=== PATIENT | female | born 1970 | race Caucasian/White ===

== ENCOUNTER 2017-05-22 13:48 | Emergency (ER) | payer OTHER ==
[~2017-05-22] VITALS: Ht 165.1 cm; Wt 63.0 kg
[2017-05-22 13:50] VITALS: BP 155/91
[2017-05-22] MEDS ORDERED: ASPIRIN 81 MG TABLET CHEW PO ONE (14:30)
[2017-05-22 14:32] LABS: BASOPHILS # (AUTO) 0.04 x10^3/uL (0-0.1); BASOPHILS % (AUTO) 1 % (0-1); EOSINOPHILS # (AUTO) 0.17 x10^3/uL (0-0.4); EOSINOPHILS % (AUTO) 3 % (1-7); LYMPHOCYTES # (AUTO) 1.57 x10^3/uL (1-3.4); LYMPHOCYTES % (AUTO) 23 % (22-44); MD NO; MEAN CORPUSCULAR HEMOGLOBIN 30.2 pg (27.0-34.8); MEAN CORPUSCULAR HGB CONC 33.7 g/dL (32.4-35.8); MEAN CORPUSCULAR VOLUME 89.4 fL (80-100); MEAN PLATELET VOLUME 8.2 fL (7.4-10.4); MONOCYTES # (AUTO) 0.43 x10^3/uL (0.2-0.8); MONOCYTES % (AUTO) 6 % (2-9); NEUTROPHILS # (AUTO) 4.55 x10^3/uL (1.8-6.8); NEUTROPHILS % (AUTO) 67 % (42-75); PLATELET COUNT 216 x10^3/uL (130-400); RED CELL DISTRIBUTION WIDTH 13.5 % (9.6-15.2)
[2017-05-22] MEDS ORDERED: ESTR1TAB15 PO (14:41)
[2017-05-22 14:44] LABS: ALBUMIN 3.5 g/dL (3.4-5.0); ANION GAP 10 mmol/L (5-15); CALCIUM 9.1 mg/dL (8.5-10.1); CHLORIDE 107 mmol/L (98-107); CREATININE 0.64 mg/dL (0.55-1.02)
[2017-05-22 14:48] LABS: TROPONIN I < 0.015 ng/mL (0.000-0.045)
[2017-05-22] MEDS ORDERED: KETOROLAC 30 MG/1 ML IVPush ONE (15:00)
[2017-05-22] MEDS ORDERED: ASPIRIN 81 MG TABLET CHEW ONE (15:05)
[2017-05-22] MEDS ORDERED: KETOROLAC 30 MG/1 ML ONE (15:05)
[2017-05-22] MEDS ORDERED: OMNIPAQUE 350 MG/ML, 100ML BOTTLE ONE (15:52)
== END 2017-05-22 17:05 | disposition home or self-care (01) ==
LOC: ED 16:59
DX: R07.89 Other chest pain (principal); M79.622 Pain in left upper arm
CPT/HCPCS: 36415; 71046; 71275; 80048; 82040; 83880; 84484; 85025; 85379; 93005; 96374; 99285; J1885; Q9967

== ENCOUNTER 2017-12-22 20:47 | Emergency (ER) | payer OTHER ==
[~2017-12-22] VITALS: Ht 152.4 cm; Wt 59.1 kg
[~2017-12-22 20:47] MED LIST: ESTR1TAB15 PO
[2017-12-22 20:53] VITALS: BP 135/88
[2017-12-22] MEDS ORDERED: HYDROcodone/APAP 5/325 TABLET ONE (21:06)
[2017-12-22] MEDS ORDERED: HYDROcodone/APAP 5/325 TABLET PO ONE (21:30)
== END 2017-12-22 21:55 | disposition home or self-care (01) ==
LOC: ED 21:49
DX: S50.02XA Contusion of left elbow, initial encounter (principal); V27.4XXA Motorcycle driver injured in collision with fixed or stationary object in traffic accident, initial encounter; Y93.89 Activity, other specified; Y92.488 Other paved roadways as the place of occurrence of the external cause; Y99.8 Other external cause status
CPT/HCPCS: 99284